=== PATIENT | male | born 1940 | race Caucasian/White ===

== ENCOUNTER 2017-01-28 04:13 | Emergency (ER) | payer OTHER ==
--- NOTE | 2017-01-28 04:38 | ED GI/GU/ABDOMINAL COMPLAINT ---
History of Present Illness General Chief Complaint: Male Genitourinary Problems Stated Complaint: UNABLE TO URINATE Source: patient, family, old records Exam Limitations: no limitations Vital Signs & Intake/Output Vital Signs & Intake/Output Vital Signs Date Time Temp Pulse Resp B/P B/P Pulse O2 O2 Flow FiO2 Mean Ox Delivery Rate 01/28 0423 97.6 89 22 136/84 96 Allergies Coded Allergies: Penicillins (HIVES 01/28/17) Triage Note: PER PT UNABLE TO EMPTY BLADDER ALL NIGHT, ABLE TO VOID SMALL AMT FOR UA SENT TO LAB Triage Nurses Notes Reviewed? yes HPI: Patient presents to the emergency room with being unable to urinate since this evening. Patient states that he has the urge to go nose that there is a lot of urine in there just he is able to only get little bits out. Patient states is abnormal once in the past and required a catheter. Patient is currently getting chemotherapy and radiation for lung cancer. Patient states that he has a pressure in his bladder that is constant and there are no aggravating or mitigating factors. There is no radiation. He rates it as severe on the scale. Past History Travel History Traveled to [place] past 21 day No Medical History Any Pertinent Medical History? see below for history Neurological: NONE Cardiovascular: hypertension Respiratory: NONE Gastrointestinal: NONE Hepatic: NONE Renal: NONE Musculoskeletal: NONE Psychiatric: NONE Endocrine: NONE Cancer(s): lung cancer Surgical History Surgical History: non-contributory Psychosocial History What is your primary language Uzbek Tobacco Use: Quit >30 days ago ETOH Use: denies use Illicit Drug Use: denies illicit drug use Family History Hx Contributory? No Review of Systems Review of Systems Constitutional: Reports: no symptoms. Respiratory: Reports: no symptoms. Cardiovascular: Reports: no symptoms. GI: Reports: no symptoms. Genitourinary: Reports: see HPI. Musculoskeletal: Reports: no symptoms. Neurological/Psychological: Reports: no symptoms. Immunologic/Allergic: Reports: no symptoms. Physical Exam Physical Exam General Appearance: well developed/nourished, alert, awake, anxious, moderate distress Eyes: Bilateral: PERRL, EOMI. Neck: normal inspection, supple Gastrointestinal: normal bowel sounds, soft, non-tender, BLADDER IS PALPABLE Neurologic/Psych: no motor/sensory deficits, awake, alert, oriented x 3, normal gait, normal mood/affect Core Measures ACS in differential dx? No Severe Sepsis Present: No Septic Shock Present: No Progress Differential Diagnosis: urinary retention, UTI/pyelo Plan of Care: Orders Procedure Date/time Status [place], Insertion/Removal/Asses 01/29 440 Active CULTURE,URINE 01/29 440 Active CULTURE,URINE 01/28 422 Active URINALYSIS 01/28 422 Complete Laboratory Tests 01/28/17426: Urine Color YEL, Urine Clarity CLEAR, Urine pH 6.0, Ur Specific [place] 1.010, Urine Protein NEG, Urine Ketones NEG, Urine Nitrite NEG, Urine Bilirubin NEG, Urine Urobilinogen 0.2, Ur Leukocyte Esterase NEG, Ur Microscopic SEDIMENT EXAMINED, Urine RBC 1-3, Urine WBC 1-3 H, Urine Hemoglobin TRACE-INTACT H, Urine Glucose NEG Microbiology 01/29 440 URINE ROUT: Urine Culture - ORD 01/28 427 URINE ROUT: Urine Culture - RECD Initial ED EKG: none Departure Departure Disposition: HOME OR SELF CARE Condition: Stable Clinical Impression Primary Impression: Urinary retention Referrals: RIC WALLER,MICKEY WILLS MD,ALETHEA Berrios (PCP/Family) Additional Instructions: Keep catheter in and do not touch the catheter. Empty The bag as directed by the nurse. Follow-up with urology. Return for any concerns. Departure Forms: Customer Survey General Discharge Information
[2017-01-28 05:29] VITALS: BP 138/80
[2017-01-28] MEDS ORDERED: FLOMAX0.4 M1 PO (22:46)
== END 2017-01-28 05:31 ==
LOC: ERH 04:13
DX: R33.9 Retention of urine, unspecified (principal)
CPT/HCPCS: 81001; 87086

== ENCOUNTER 2017-01-28 20:21 | Emergency (ER) | payer OTHER ==
[~2017-01-28] VITALS: Ht 180.3 cm; Wt 88.5 kg
[2017-01-28 21:12] VITALS: BP 114/73
--- NOTE | 2017-01-28 21:47 | ED GI/GU/ABDOMINAL COMPLAINT ---
History of Present Illness General Chief Complaint: General Adult Stated Complaint: PT HAS BLOOD IN THE CATHETER Source: patient Exam Limitations: no limitations Vital Signs & Intake/Output Vital Signs & Intake/Output Vital Signs Date Time Temp Pulse Resp B/P B/P Pulse O2 O2 Flow FiO2 Mean Ox Delivery Rate 01/29 2112 98.6 89 20 114/73 95 Room Air ED Intake and Output 01/29 0000 01/28 1200 Intake Total Output Total 100 Balance -100 Output, Urine 100 Patient 195 lb Weight Weight Reported by Patient Measurement Method Allergies Coded Allergies: Penicillins (HIVES 01/28/17) Reconcile Medications Tamsulosin HCl (Flomax) 0.4 MG CAP.ER.24H 1 CAP PO DAILY urinary retention Triage Note: TRIAGE: PT TO ER C/C NUR CATHETER WITH BLOOD IN BAG. HAD NUR CATHETER PLACED IN THIS ER EARLY THIS AM FOR DIFFICULTY URINATING SINCE MIDNIGHT. STATES HAS HAD DISCOMFORT AT TIP OF PENIS SINCE NUR INSERTION. 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 yes Duration: hour(s): Timing: recent history Quality/Severity: "I feel fine...maybe just some pinching in the penis where the tube is... I just see blood in the nur bag." Location: urethral Radiation: no radiation Activities at Onset: "I got a nur last night." Modifying Factors: Worsens With: other (with movement of nur). Associated Symptoms: "I noticed blood in the nur bag." HPI: 77yo gentleman presents with hematuria in his nur bag. He notes that he had the nur placed yesterday due to urinary retention. He notes that tonight, he saw there was blood in the nur bag. He is on coumadin for afib, had an inr of 1.3 last , was on 5mg qday, which was then increased to 7.5mg on /sunday. He notes that his urine is able to flow without problem. He has no clots, no pain. He is planning on seeing the urologist tomorrow. he is otherwise well. Past History Travel History Traveled to [place] past 21 day No Medical History Any Pertinent Medical History? 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 No Review of Systems Review of Systems Constitutional: Reports: no symptoms. EENTM: Reports: no symptoms. Respiratory: Reports: no symptoms. Cardiovascular: Reports: no symptoms. GI: Reports: no symptoms. Genitourinary: Reports: no symptoms. Musculoskeletal: Reports: no symptoms. Skin: Reports: no symptoms. Neurological/Psychological: Reports: no symptoms. Hematologic/Endocrine: Reports: no symptoms. Immunologic/Allergic: Reports: no symptoms. All Other Systems: Reviewed and Negative Physical Exam Physical Exam General Appearance: well developed/nourished, no apparent distress Head: atraumatic, normal appearance Eyes: Bilateral: normal appearance. Ears, Nose, Throat, Mouth: hearing grossly normal Neck: normal inspection, supple, full range of motion Respiratory: normal breath sounds, chest non-tender, no respiratory distress, quiet respiration, lungs clear Cardiovascular: regular rate/rhythm Gastrointestinal: normal bowel sounds, soft, non-tender, no organomegaly Male Genitals: normal genitalia, dark urine tinged with blood in nur bag, no clots. Back: normal inspection Extremities: normal range of motion Core Measures ACS in differential dx? No Severe Sepsis Present: No Septic Shock Present: No Progress Differential Diagnosis: hematuria, likely traumatic Plan of Care: urine flowing freely... discussed at length.... he declines inr check and u/a. he feels comfortable going home and will follow with his pmd and urologist. I added flomax to his regimen. encouraged return if symptoms not improved. Initial ED EKG: none Departure Departure Disposition: HOME OR SELF CARE Condition: Stable Clinical Impression Primary Impression: Hematuria Secondary Impressions: Nur catheter problem Referrals: ELMA WALLER,ALETHEA Berrios (PCP/Family) Departure Forms: Customer Survey General Discharge Information Prescriptions: Current Visit Scripts Tamsulosin HCl (Flomax) 1 CAP PO DAILY #10 CAP Ref 1
[2017-01-28] MEDS ORDERED: FLOMAX0.4 M1 PO (22:46)
== END 2017-01-28 23:04 ==
LOC: ERH 20:21
DX: T83.098A Other mechanical complication of other urinary catheter, initial encounter (principal); R31.9 Hematuria, unspecified; Z79.01 Long term (current) use of anticoagulants

== ENCOUNTER → 2018-02-21 | Day surgery (SDC) | payer OTHER, MEDICARE ==
[~2018-02-21] VITALS: Ht 180.3 cm; Wt 83.9 kg
[~2018-02-21] MED LIST: FLOMAX0.4 M1 PO
--- NOTE | 2018-02-21 13:13 | Operative Report ---
Operative/Inv Procedure Report Surgery Date: 02/21/18 Name of Procedure: Right Pleurx catheter Pre-Operative Diagnosis: Recurrent symptomatic right pleural effusion Post-Operative Diagnosis: Same Estimated Blood Loss: scant Surgeon/Video Software Engineer: Filippo Ag MD,Micheal Goodman Anesthesia: local monitored anesthesi Operative/Procedure Note Note: After placement of monitoring lines patient's right chest was prepped and draped in a sterile fashion. 1% lidocaine was used local anesthetic. The chest was entered in the midaxillary line at the seventh intercostal space. There was brisk return of serous effusion. A wire was passed through the sheath with no resistance. Incision was made at the wire and a counterincision made in the lower chest wall. The Pleurx catheter was tunneled from the lower incision to the wire site with the Dacron cuff placed subcutaneously. The wire tract was then gently progressively dilated with no resistance. The sheath dilator was passed over the wire and the catheter was passed through the sheath with no resistance. Approximately 2.1 L of serous effusion was drained and fluid was sent for cytology. The posterior incision was closed with a Vicryl suture and the catheter was secured to the skin with a silk suture. It was dressed with the enclosed sterile dressing. The patient tolerated the procedure well and brought to recovery room in stable condition. CC: Myla WALLER,Wallace Berrios; Lin WALLER,Smith Balbuena
--- NOTE | 2018-02-21 14:13 | RADIOLOGY REPORT ---
EXAMINATION: XR PORTABLE CHEST CLINICAL INFORMATION: Postoperative Pleurx catheter COMPARISON: 02/20/2018. TECHNIQUE: Portable frontal view of the chest was obtained. FINDINGS: There is new chest tube overlying the right lung base. Significant decrease in the right pleural effusion. No definite pneumothorax. Right hilar mass and right-sided volume loss as demonstrated previously. The left lung appears clear. IMPRESSION: Significant decrease in the right pleural effusion. No pneumothorax.
== END ==
LOC: STS 02:38
DX: J90 Pleural effusion, not elsewhere classified (principal); C34.90 Malignant neoplasm of unspecified part of unspecified bronchus or lung; Z87.891 Personal history of nicotine dependence; J44.9 Chronic obstructive pulmonary disease, unspecified; I48.0 Paroxysmal atrial fibrillation; Z79.01 Long term (current) use of anticoagulants; I10 Essential (primary) hypertension
CPT/HCPCS: 71045; 88305; C1729; J0131; J2250